=== PATIENT | female | born 1985 | race American Indian/Alaskan Native ===

== ENCOUNTER 2018-11-27 02:25 | Inpatient (IN) | payer OTHER ==
[2018-11-27] MEDS ORDERED: LACTATED RINGERS 1,000 ML ONE (03:01)
[2018-11-27] MEDS ORDERED: ePHEDrine SULFATE 50 MG/1 ML INJ IV PRN ×2 (03:13→04:31)
[2018-11-27] MEDS ORDERED: TERBUTALINE 1 MG/1 ML INJ IVP PRN (03:13)
[2018-11-27] MEDS ORDERED: NALOXONE 0.4 MG/1 ML INJ IV PRN (03:13)
[2018-11-27] MEDS ORDERED: TERBUTALINE 1 MG/1 ML INJ SUB-Q PRN (03:13)
[2018-11-27] MEDS ORDERED: fentaNYL 100 MCG/2 ML INJ IV PRN (03:13)
[2018-11-27] MEDS ORDERED: AMPICILLIN/NS 2 GM/100 ML 2 GM/100 ML BAG IV ONE (03:13)
[2018-11-27] MEDS ORDERED: MINERAL OIL 30 ML ORAL LIQD PO PRN (03:13)
[2018-11-27] MEDS ORDERED: ONDANSETRON 4 MG/2 ML INJ IV PRN ×2 (03:13→10:00)
[2018-11-27] MEDS ORDERED: NalbUPHINE 10 MG/1 ML INJ IV PRN (03:13)
[2018-11-27] MEDS ORDERED: BUTORPHANOL 2 MG/1 ML INJ IV PRN (03:13)
[2018-11-27] MEDS ORDERED: LIDOCAINE (2%) 20 MG/1 ML VIAL 20 ML MDV INFILTRATI ONE (03:13)
[2018-11-27 03:31] LABS: Hematocrit 38.6 % (30.3-42.9); Hemoglobin 12.7 gm/dl (10.1-14.3); Mean Corpuscular HGB Conc 33 % (30-34); Mean Corpuscular Volume 72 fl (79-97); Platelet Count 193 K/mm3 (140-440); Red Cell Distribution Width 15.1 % (13.2-15.2)
[2018-11-27] MEDS: LACTATED RINGERS 1,000 ML IV SCH ×2 (03:45→04:31)
[2018-11-27] MEDS ORDERED: OXYTOCIN 20 UNIT/1000ML DRIP 20 UNITS/1,000 ML BAG IV SCH ×2 (04:00→10:00)
[2018-11-27] MEDS ORDERED: NALOXONE 2 MG/2 ML INJ IV PRN (04:31)
--- NOTE | 2018-11-27 04:32 | Anesthesia Consultation ---
Anesthesia Consult and Med Hx Date of service: 11/27/18 - Airway Anesthetic Teeth Evaluation: Good ROM Head & Neck: Adequate Mental/Hyoid Distance: Adequate Mallampati Class: Class II Intubation Access Assessment: Probably Good - Pulmonary Exam CTA: Yes - Cardiac Exam Cardiac Exam: RRR - Pre-Operative Health Status ASA Pre-Surgery Classification: ASA2 Proposed Anesthetic Plan: Epidural - Pulmonary Hx Asthma: Yes (last attack was years ago) COPD: No Hx Pneumonia: No - Central Nervous System Hx Seizures: No Hx Psychiatric Problems: No - Endocrine Hx Renal Disease: No Hx End Stage Renal Disease: No Hx Hypothyroidism: No Hx Hyperthyroidism: No - Hematic Hx Anemia: No Hx Sickle Cell Disease: No - Other Systems Hx Alcohol Use: No
[2018-11-27] MEDS ORDERED: fentaNYL-BUPIV 2 MCG/ML-0.125% 200 MCG/100 ML BAG EPIDURAL SCH (05:00)
[2018-11-27] MEDS ORDERED: BUPIVACAINE/PF (0.25%) 2.5 MG/ML 10 ML VIAL INFILTRATI ONE (05:22)
--- NOTE | 2018-11-27 06:51 | History and Physical Report ---
History of Present Illness Date of examination: 11/27/18 Date of admission: 11/27/18 03:13 Chief complaint: contractions, water broke History of present illness: Pt is a 33 year old female SYMONE 12/12/18 at 37w6d who presents with regular painful contractions and water leaking since 0049 am. She has had care at [facility] since transfer into care at 18 wks complicated by beta thalassemia minor and GBS positive status. 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, D&C, other (lsik, wisdom tooth removed ) Family/Genetic History: none Social history: no significant social history - Obstetrical History Expected Date of Delivery: 12/12/18 Actual Gestation: 37 Week(s) 6 Day(s) : 3 Para: 1 Hx # Term Pregnancies: 1 Number of Pregnancies: 0 Spontaneous Abortions: 0 Induced : 1 Number of Living Children: 1 Medications and Allergies Allergies Allergy/AdvReac Type Severity Reaction Status Date / Time No Known Drug Allergies Allergy Unknown Verified 11/27/18 03:33 Active Meds: Active Medications Butorphanol Tartrate (Stadol) 2 mg IV Q2H PRN PRN Reason: Pain , Severe (7-10) Ephedrine Sulfate (Ephedrine Sulfate) 10 mg IV Q2M PRN PRN Reason: Hypotension Ephedrine Sulfate (Ephedrine Sulfate) 10 mg IV Q2M PRN PRN Reason: Hypotension Fentanyl (Sublimaze) 100 mcg IV Q2H PRN PRN Reason: Labor Pain Oxytocin/Sodium Chloride (Pitocin/Ns 20 Unit/1000ml Drip) 20 units in 1,000 mls @ 125 mls/hr IV DIRECT SHILPA Oxytocin/Sodium Chloride (Pitocin/Ns 30 Unit/500ml) 30 units in 500 mls @ 2 mls/hr IV TITR SHILPA; Protocol Lactated Ringer's (Lactated Ringers) 1,000 mls @ 125 mls/hr IV DIRECT SHILPA Last Admin: 11/27/18 04:31 Dose: 125 mls/hr Documented by: Ampicillin Sodium (Ampicillin/Ns 1 Gm/50 Ml) 1 gm in 50 mls @ 100 mls/hr IV Q4HR SHILPA; Protocol Fentanyl/Bupivacaine/Sodium Chlor (Fentanyl-Bupiv 2 Mcg/Ml-0.125%) 200 mcg in 100 mls @ 12 mls/hr EPIDURAL TITR SHILPA; Protocol Last Admin: 11/27/18 04:55 Dose: 12 mls/hr Documented by: Mineral Oil (Mineral Oil) 30 ml PO QHS PRN PRN Reason: Constipation Nalbuphine HCl (Nubain) 10 mg IV Q2H PRN PRN Reason: Pain, Moderate (4-6) Naloxone HCl (Narcan 0.4 Mg/1 Ml) 0.1 mg IV Q2MIN PRN PRN Reason: Res Rate </= 8 or 02 SAT < 92% Naloxone HCl (Narcan 2 Mg/2 Ml) 0.2 mg IV Q5M PRN PRN Reason: Respiratory sedation Ondansetron HCl (Zofran) 4 mg IV Q8H PRN PRN Reason: Nausea And Vomiting Terbutaline Sulfate (Brethine) 0.25 mg SUB-Q ONCE PRN PRN Reason: Hyperstimulation/Hypertonicity Terbutaline Sulfate (Brethine) 0.25 mg IVP ONCE PRN PRN Reason: Hyperstimulation/Hypertonicity Review of Systems All systems: negative - Vital Signs Vital signs: Vital Signs Resp 18 11/27/18 02:30 Temp Pulse Resp BP Pulse Ox 87 18 120/76 100 11/27/18 06:41 11/27/18 02:30 11/27/18 06:41 11/27/18 05:33 - Physical Exam Breasts: Positive: deferred Abdomen: Positive: soft (gravid ) Genitourinary (Female): Positive: normal external genitalia Uterus: Positive: enlarged (gravid ) Extremities: Positive: normal - Obstetrical FHR: auscultation normal Uterine Contraction Monitor Mode: External Cervical Dilatation: 9 Cervical Effacement Percentage: 100 station: -1 Uterine Contraction Pattern: Regular Uterine Contraction Intensity: Strong/Firm Results Result Diagrams: 11/27/18 02:20 Abnormal lab results 11/27/18 Range/Units 02:20 RBC 5.40 H (3.65-5.03) M/mm3 MCV 72 L (79-97) fl MCH 24 L (28-32) pg All other labs normal. Assessment and Plan A: IUP at 37w6d Active labor SROM GBS positive Beta thalassemia minor P: Admit to labor and delivery Routine intrapartum care Anticipate vaginal delivery
--- NOTE | 2018-11-27 06:54 | Procedure Note ---
OB Delivery Note - Delivery Date of Delivery: 11/27/18 Surgeon: SONJA LIRIANO Estimated blood loss: other (400 mL) - Vaginal Delivery presentation: vertex Delivery position: OA Intrapartum events: PROM->1hr before delivery Delivery induction: none Delivery monitor: external FHT, external uterine Route of delivery: Delivery placenta: spontaneous Episiotomy: none Delivery laceration: none Anesthesia: epidural - Infant A at 1 minute: 8 at 5 minutes: 9 Gender: Female (3218g (7lb 2oz) @ 0559 am)
[2018-11-27] MEDS ORDERED: AMPICILLIN/NS 1 GM/50 ML 1 GM/50 ML BAG IV SCH (07:15)
[2018-11-27] MEDS ORDERED: OXYTOCIN DRIP 30 UNITS/500 ML BAG IV SCH (07:30)
[2018-11-27] MEDS ORDERED: PROMETHAZINE 25 MG RECT SUPP PR PRN (10:00)
[2018-11-27] MEDS ORDERED: WITCH HAZEL/ GLYCERIN PAD TP PRN (10:00)
[2018-11-27] MEDS ORDERED: PROMETHAZINE 25 MG TAB PO PRN (10:00)
[2018-11-27] MEDS ORDERED: ACETAMINOPHEN 325 MG TAB PO PRN (10:00)
[2018-11-27] MEDS ORDERED: LANOLIN/ZINC/DIMETHICONE (LANSINOH) 7 GM TP PRN (10:00)
[2018-11-27] MEDS ORDERED: BENZOCAINE/MENTHOL 20/0.5% TOP SPRAY 56 GM TP PRN (10:00)
[2018-11-27] MEDS ORDERED: diphenhydrAMINE 25 MG CAP PO PRN (10:00)
[2018-11-27] MEDS ORDERED: HYDROcodone/ACETAMINOPHEN 5-325 MG TAB PO PRN (10:00)
[2018-11-27] MEDS: LANOLIN/ZINC/DIMETHICONE (LANSINOH) 7 GM TP PRN (11:26)
[2018-11-27] MEDS: FERROUS SULFATE 325 MG TAB PO SCH ×2 (11:27→21:43)
[2018-11-27] MEDS: IBUPROFEN 600 MG TAB PO SCH ×2 (14:02→19:14)
[2018-11-27 19:56] LABS: Hematocrit 33.2 % (30.3-42.9); Hemoglobin 10.5 gm/dl (10.1-14.3)
[2018-11-27] MEDS ORDERED: MAGNESIUM HYDROXIDE (MOM) ORAL LIQD UDC PO PRN (22:00)
[2018-11-28] MEDS ORDERED: TETANUS,DIPH,PERTUSS(ACELL) VACCINE 0.5 ML SYRINGE IM ONE (06:00)
--- NOTE | 2018-11-28 08:36 | Progress Note ---
Assessment and Plan A/P PPD 1 routine PP care d/c home tomorrow Subjective - Subjective Date of service: 11/28/18 Principal diagnosis: Patient reports: appetite normal, voiding normally, pain well controlled, flatus, ambulating normally [place]: doing well Objective - Vital Signs Latest vital signs: Vital Signs Temp Pulse Resp BP BP Pulse Ox 11/28/18 00:00 98.9 F 74 20 111/63 98 11/27/18 17:29 98.7 F 94 H 16 118/64 97 11/27/18 08:43 98.3 F 103 H 16 127/71 99 Intake and Output 11/27/18 11/28/18 11/28/18 23:59 07:59 15:59 Intake Total 480 Balance 480 Intake: Oral 480 Other: Total, Intake Amount 480 # Voids Void 2 # Bowel Movements 0 - Exam Breasts: Present: normal Cardiovascular: Present: Regular rate, Normal S1 Lungs: Present: Clear to auscultation, Normal air movement Abdomen: Present: normal appearance, soft, normal bowel sounds. Absent: distention, tenderness, guarding Vulva: both: normal Uterus: Present: normal, firm, fundal height below umbilicus. Absent: bogginess, tenderness Extremities: Present: normal Deep Tendon Reflex Grade: Normal +2 Incision: Present: normal
--- NOTE | 2018-11-28 08:39 | Discharge Summary ---
Providers - Providers Date of Admission: 11/27/18 03:13 Date of discharge: 11/29/18 Attending physician: SONJA LIRIANO Primary care physician: SONJA LIRIANO Hospitalization Reason for admission: active labor Delivery: Episiotomy: none Laceration: none Incision: normal, dry, intact Other procedures: none Discharge diagnosis: IUP at term delivered baby: female Hospital course: unremarkable hospital course Condition at discharge: Good Disposition: DC-01 TO HOME OR SELFCARE Plan - Discharge Medications Prescriptions: Ferrous Sulfate [Feosol 325 MG tab] 325 mg PO BID #60 tablet Ibuprofen [Motrin] 800 mg PO Q8HR PRN #30 tablet PRN Reason: Pain, Moderate (4-6) HYDROcodone/APAP 5-325 [[place] 5/325] 1 each PO Q6HR PRN #20 tablet PRN Reason: Pain - Provider Discharge Summary Activity: routine, no sex for 6 weeks, no strenuous exercise Diet: routine Instructions: routine Additional instructions: [] Smoking cessation referral if applicable(refer to patient education folder for contact #) [] Refer to [facility] Booklet Call your doctor immediately for: * Fever > 100.5 * Heavy vaginal bleeding ( >1 pad per hour) * Severe persistent headache * Shortness of breath * Reddened, hot, painful area to leg or breast * Drainage or odor from incision. * Keep incision clean and dry at all times and follow doctor's instructions regarding bathing/showering - Follow up plan Follow up: SONJA LIRIANO MD [Primary Care Provider] - 12/18/18
[2018-11-28] MEDS: IBUPROFEN 600 MG TAB PO SCH ×3 (10:00→21:38)
[2018-11-28] MEDS ORDERED: MEASLES, MUMPS & RUBELLA 12,500 UNIT/0.5 ML VACCINE SUB-Q ONE (11:00)
[2018-11-28] MEDS: FERROUS SULFATE 325 MG TAB PO SCH ×2 (12:00→21:40)
[2018-11-28] MEDS: LANOLIN/ZINC/DIMETHICONE (LANSINOH) 7 GM TP PRN (16:29)
[2018-11-29] MEDS: IBUPROFEN 600 MG TAB PO SCH (05:13)
[2018-11-29] MEDS: FERROUS SULFATE 325 MG TAB PO SCH (10:24)
--- NOTE | 2018-11-29 12:21 | Event Note ---
Date: 11/29/18 Patient is still hospitalized secondary to increased bilirubin in the infant. Patient is without complaints.
[2018-11-29 13:41] VITALS: BP 114/69
== END 2018-11-29 18:45 | disposition home or self-care (01) | DRG 775 ==
LOC: TRG 02:25 → LD 03:13 → OB 08:24
PROVIDERS: ADMIT Obstetrics & Gynecology; ATTEND Obstetrics & Gynecology
PROC: 10E0XZZ Delivery of Products of Conception, External Approach (ICD-10-PCS; principal; 2018-11-27)
PROC: 3E0R3BZ Introduction of Anesthetic Agent into Spinal Canal, Percutaneous Approach (ICD-10-PCS; 2018-11-27)
PROC: 00HU33Z Insertion of Infusion Device into Spinal Canal, Percutaneous Approach (ICD-10-PCS; 2018-11-27)
DX: O99.824 Streptococcus B carrier state complicating childbirth (principal); O99.12 Other diseases of the blood and blood-forming organs and certain disorders involving the immune mechanism complicating childbirth; D56.3 Thalassemia minor; O99.52 Diseases of the respiratory system complicating childbirth; J45.909 Unspecified asthma, uncomplicated; O42.92 Full-term premature rupture of membranes, unspecified as to length of time between rupture and onset of labor; Z37.0 Single live birth; Z3A.37 37 weeks gestation of pregnancy
CPT/HCPCS: 36415; 85014; 85018; 85027; 86592; 86850; 86900; 86901; G0378; A6250; J0290; J2590; J7120